=== PATIENT | female | born 1980 | race Caucasian/White ===

== ENCOUNTER 2016-06-20 14:47 | Emergency (ER) | payer OTHER ==
[2016-06-20] MEDS ORDERED: DEXAMETHASONE 10 MG/ML VIAL PO STA (16:51)
[2016-06-20] MEDS ORDERED: DEXAMETHASONE 10 MG/ML VIAL ONE (16:55)
[2016-06-20] MEDS ORDERED: CHERRY SYRUP 10 ML UDC PO ONE (16:55)
== END 2016-06-20 17:12 | disposition home or self-care (01) ==
DX: M54.5 Low back pain (principal); E03.9 Hypothyroidism, unspecified
CPT/HCPCS: 99282; 99283; A9270

== ENCOUNTER 2016-07-18 12:51 | Emergency (ER) | payer OTHER ==
[2016-07-18] MEDS ORDERED: HYDROmorphone 1 MG/ML SYRINGE IM STA ×2 (16:21→17:21)
[2016-07-18] MEDS ORDERED: PROMETHAZINE 25 MG/1 ML VIAL IM STA (16:22)
[2016-07-18] MEDS ORDERED: HYDROmorphone 1 MG/ML SYRINGE ONE ×2 (16:46→17:23)
[2016-07-18] MEDS ORDERED: PROMETHAZINE 25 MG/1 ML VIAL ONE (16:46)
[2016-07-18] MEDS ORDERED: DEXAMETHASONE 10 MG/ML VIAL PO STA (17:07)
[2016-07-18] MEDS ORDERED: CHERRY SYRUP 10 ML UDC PO ONE (17:16)
[2016-07-18] MEDS ORDERED: DEXAMETHASONE 10 MG/ML VIAL ONE (17:16)
== END 2016-07-18 17:54 | disposition home or self-care (01) ==
DX: M54.42 Lumbago with sciatica, left side (principal); E03.9 Hypothyroidism, unspecified
CPT/HCPCS: 81003; 96372; 99283; 99284; A9270; J1170

== ENCOUNTER 2016-07-19 13:27 | Emergency (ER) | payer OTHER ==
[2016-07-19] MEDS ORDERED: HYDROcod/ACETAM 5/325 MG TABLET PO STA (14:36)
[2016-07-19] MEDS ORDERED: HYDROcod/ACETAM 5/325 MG TABLET ONE (14:37)
[2016-07-19] MEDS ORDERED: HYDROmorphone 1 MG/ML SYRINGE IM STA (14:55)
[2016-07-19] MEDS ORDERED: HYDROmorphone 1 MG/ML SYRINGE ONE (14:55)
[2016-07-19] MEDS ORDERED: LORazepam 2 MG/ML SYRINGE IVP STA (16:47)
[2016-07-19] MEDS ORDERED: LORazepam 2 MG/ML SYRINGE ONE (16:48)
== END 2016-07-19 18:12 | disposition short-term general hospital (02) ==
DX: M48.06 Spinal stenosis, lumbar region (principal); R29.818 Other symptoms and signs involving the nervous system; M51.26 Other intervertebral disc displacement, lumbar region; E03.9 Hypothyroidism, unspecified
CPT/HCPCS: 72148; 96372; 96374; 99283; 99284; A9270; J1170; J2060

== ENCOUNTER 2016-07-19 18:15 | Outpatient (CLI) | payer OTHER | END 2016-07-19 18:16 | disposition short-term general hospital (02) | DX: M54.9 Dorsalgia, unspecified (principal) | CPT/HCPCS: A0170; A0425; A0426 ==

== ENCOUNTER 2017-10-31 11:19 | Emergency (ER) | payer OTHER ==
--- NOTE | 2017-10-31 12:10 | XRAY Preliminary Report ---
Exam: XR HAND 3 VIEW RT IMPRESSION: No acute radiographic abnormality of the right hand [facility] SITE ID: [id number]
--- NOTE | 2017-10-31 12:10 | XRAY Report ---
EXAM: RIGHT HAND RADIOGRAPHY EXAM DATE: 10/31/2017 11:49 AM. CLINICAL HISTORY: Crushing injury to right hand from dog. COMPARISON: None. TECHNIQUE: 3 views. FINDINGS: Bones: Normal. No fractures or bone lesions. Joints: Normal. No subluxations. Soft Tissues: Unremarkable IMPRESSION: No acute radiographic abnormality of the right hand [facility] Referring Provider Line: [phone] SITE ID: [id number]
--- NOTE | 2017-10-31 12:27 | ED Physician Documentation ---
PD HPI UPPER EXT INJURY - Stated complaint Stated Complaint: HAND INJURY - Chief complaint Chief Complaint: Ext Problem - History obtained from History obtained from: Patient - History of Present Illness Location: Right, Hand Type of injury: Blunt / blow (dog ran into her hand full force and struck dorsum of it.) Where injury occurred: Other (dog park) Timing - onset: Yesterday Timing - duration: Days (1) Timing - details: Abrupt onset, Still present Improved by: Rest Worsened by: Moving, Palpating Associated symptoms: Swelling, Discolored (bruised). 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 - Present Medications Home Medications: Ambulatory Orders Medication Instructions Recorded Confirmed Levothyroxine [Synthroid] 100 mcg PO DAILY 07/28/14 07/19/16 Sertraline HCl [Zoloft] 150 mg PO DAILY 10/27/15 07/19/16 HYDROcod/ACETAM 5/325 [[place] 5/325] 1 - 2 ea PO Q6H PRN #20 tablet 07/18/16 predniSONE [Prednisone] 20 mg PO DAILY #5 tablet 07/18/16 07/19/16 Naproxen [Naprosyn] 500 mg ORAL BID PRN 07/19/16 07/19/16 - Allergies Allergies/Adverse Reactions: Allergies Allergy/AdvReac Type Severity Reaction Status Date / Time No Known Drug Allergies Allergy Verified 07/19/16 13:33 - Social History Does the pt smoke?: No Smoking Status: Never smoker Does the pt drink ETOH?: No Does the pt have substance abuse?: No - Immunizations Immunizations are current?: Yes - POLST Patient has POLST: No PD ED PE NORMAL - Vitals Vital signs reviewed: Yes - General General: Alert and oriented X 3, No acute distress, Well developed/nourished - Derm Derm: Normal color, Warm and dry - Extremities Extremities: Other (dorsum right hand with tenderness over mid 3rd/4th MC area with some bruising and swelling. No gross deformity. ) Results - Vitals Vitals: Oxygen O2 Source Room air - Rads (name of study) hand Radiology: Prelim report reviewed (no fractures) PD MEDICAL DECISION MAKING - ED course Complexity details: reviewed results, considered differential, d/w patient Departure - Departure Disposition: 01 Home, Self Care Clinical Impression: Hand contusion Qualifiers: Encounter type: initial encounter Laterality: right Qualified Code(s): S60.221A - Contusion of right hand, initial encounter Condition: Stable Record reviewed to determine appropriate education?: Yes Instructions: ED Contusion Hand Comments: There are not any fractures on x-ray. Ice rest and elevate your hand as needed today and tomorrow for the swelling. The bruising should go down after several days. Tylenol or ibuprofen if needed for pains. Progress use as able. Discharge Date/Time: 10/31/17 12:46
[2017-10-31 12:41] VITALS: BP 142/96
== END 2017-10-31 12:46 | disposition home or self-care (01) ==
LOC: ED 11:19
DX: S60.221A Contusion of right hand, initial encounter (principal); W54.1XXA Struck by dog, initial encounter; Y93.K1 Activity, walking an animal; Y92.830 Public park as the place of occurrence of the external cause; E03.9 Hypothyroidism, unspecified
CPT/HCPCS: 99282; 99283

== ENCOUNTER 2019-03-08 12:49 | Outpatient (CLI) | payer OTHER ==
[2019-03-08 15:59] VITALS: BP 111/81
--- NOTE | 2019-03-08 15:59 | SLEEP CARE CONSULTATION ---
Information from patient questionnaire entered by Jenny Guthrie. I have reviewed and concur with the information entered by Jenny Guthrie. This document represents the service I personally performed and the decisions made by me, Min Rod MD, [facility]. History of Present Illness Reason for Visit: New patient Chief Complaint: reports: Unrefreshed sleep, Excessive daytime sleepiness, Fatigue Duration of Symptoms: 2 YEARS Usual bedtime: 2300 Time it takes to fall asleep: at least 60 minutes Snores at night: Yes (some) Sleeps alone due to snoring: No Number of times waking at night: 2-3 Reasons for waking at night: reports: Pain, Bathroom, Other (dog) Toss, Turn, or Twitch while sleeping: Yes Recalls having dreams: Yes Usually gets out of bed at: 0700 Feels refreshed in the morning: No Sleepy or fatigued during the day: Yes Takes day naps: Yes Dreams during day naps: Yes Prior sleep studies: No Additional HPI information: I had the pleasure of seeing Ms. Gonzalez today regarding the possibility of her having a sleep disorder. As you know, she is a 38 year old lady who complains of unrefreshed sleep, persistent fatigue, and excessive daytime sleepiness for the past 2 years. The patient tells me that she normally goes to bed around 11 pm, and it takes her approximately 1+ hour to fall asleep. She has been told that she snores loudly and irregularly at night. She has never been observed to stop breathing in her sleep. Her spouse can still sleep in the same bed. She can recall waking up on the average of 2 - 3 times during the night. Most of the time she wakes up because of having to use the bathroom and dog. She has awakened occasionally because of her own snoring, but not choking, or having to gasp for air. There is a lot of tossing and turning in her sleep. No somniloquy (sleep talking) or somnambulism (sleep walking). Generally she can recall having dreams. In the morning she usually gets up out of the bed around 7 a.m. not feeling refreshed nor rested. She usually does not have a morning headache. During the day she complains of feeling sleepy and fatigued. Her score on [place] Sleepiness Scale is 15 out of 24. She has never fallen asleep while driving nor has had any accident due to sleepiness. She usually takes 1.5- hour naps during the day. Upon falling asleep during the day she reports having dreams. She has never had sleep paralysis, experienced cataplexy or symptoms of restless leg syndrome. She reports having impaired concentration during the day. Subjective Initial [place] Sleepiness Scale score: 15 Past Medical History Past Medical History: reports: Depression, Other (celiac) Social History The patient's occupation is not employed. Patient is and lives in [place]. Have you smoked in the past 12 months: No Alcohol use: No Family History Family history of sleep disordered breathing: Yes Family Hx Sleep Apnea: Father: Snoring Allergies and Home Medications Drug allergies reviewed: Yes Home medication list reviewed: Yes Allergy and home medication list: Meds: melatonin, Cymbalta, and control pills Review of Systems Weight gain over past 5 years: 30 Cardiovascular: denies: high blood pressure, palpitations, chest pain, irregular heart rate or pulse, leg or foot swelling, have to sleep sitting up, other Respiratory: denies: shortness of breath, wheeze, sputum production, chronic cough, other Gastrointestinal: reports: diarrhea, abdominal pain, other (celiac) Urinary: reports: urgency Neurological: denies: headaches, seizure, head trauma, disorientation, speech dysfunction, gait or balance problems, fainting or unconsciousness, other Psychiatric: reports: depression Ear/Nose/Throat: reports: wisdom teeth removed Endocrine: denies: thyroid disease, history of goiter, sluggishness, too hot or cold, excessive thirst, increased appetite, increased urination, unexplained weakness, other Musculoskeletal: denies: joint pain, neck pain, back pain, joint swelling, muscle pain or cramping, mobility problems, other Immunologic: reports: sneezing, rash, itching, allergies to food or environment Physical Exam Vital signs obtained and entered by: Dr. Rod Blood Pressure: 111/81 Cuff size: regular Heart Rate: 96 O2 Saturation: 96 Height: 5 ft 9 in Weight: 310 lb Body Mass Index: 45.8 BMI Classification: Obesity Class 3 Neck circumference: 17 Mood/affect: normal HEENT: No craniofacial malformation Nostrils: patent to airflow Turbinates: normal Septum: midline Mouth and throat: narrow oropharynx Soft palate: long Hard palate: normal Uvula: normal Uvula visualization: 50% Mallampati Class II Tongue: normal in size Tonsils: small Chin and jaw: normal size and position Neck: normal w/o lymphadenopathy or thyromegaly Heart: regular rate and rhythm Lungs: clear bilaterally Abdomen: soft, non-tender Extremities: no edema or clubbing Neurologic: intact, no focal deficits Impression and Plan IMPRESSION: 1. Obstructive Sleep Apnea-Hypopnea Syndrome, as suggested by history of loud and irregular snoring, frequent awakenings during the night, unrefreshed sleep, and daytime hypersomnolence. Narrow oropharynx and obesity are common predisposing factors for obstructive sleep apnea-hypopnea syndrome. Pathophysiology of sleep-disordered breathing was discussed. I recommend proceeding to polysomnography to confirm the diagnosis and to assess severity. If she has significant sleep disordered breathing, a manual CPAP titration study will also be performed to find the optimal treatment pressure. I informed the patient of what the sleep studies involve and after some discussion, she agreed to proceed. Plan: 1. Schedule polysomnography + manual CPAP titration study and return in 1 to 2 weeks after the study to discuss result and initiate therapy. 2. Avoid long distance driving or when feeling sleepy. 3. Avoid alcohol, sedative and muscle relaxant around bedtime. 4. Attempt to lose weight. I spent 100% of this 20 minute visit face to face with the patient with greater than 50% of this was spent time counseling the patient and coordination of care.
== END 2019-03-08 12:50 | disposition home or self-care (01) ==
LOC: SC 12:49
PROVIDERS: ATTEND Internal Medicine Pulmonary Disease
DX: R06.83 Snoring (principal); G47.8 Other sleep disorders; G47.10 Hypersomnia, unspecified
CPT/HCPCS: 99203; 99212

== ENCOUNTER 2019-03-16 20:17 | Outpatient (CLI) | payer OTHER | END 2019-03-16 20:18 | disposition home or self-care (01) | LOC: SC 20:17 | PROVIDERS: ATTEND Internal Medicine Pulmonary Disease | DX: G47.33 Obstructive sleep apnea (adult) (pediatric) (principal); G47.61 Periodic limb movement disorder; E66.9 Obesity, unspecified; Z68.42 Body mass index [BMI] 45.0-49.9, adult | CPT/HCPCS: 95810 ==

== ENCOUNTER 2019-03-22 13:15 | Outpatient (CLI) | payer OTHER ==
--- NOTE | 2019-03-22 14:18 | SLEEP CARE CONSULTATION ---
Information from patient questionnaire entered by Jenny Guthrie. I have reviewed and concur with the information entered by Jenny Guthrie. This document represents the service I personally performed and the decisions made by me, Min Rod MD, [facility]. History of Present Illness Initial [place] Sleepiness Scale score: 15 Current [place] Sleepiness Scale score: 16 Additional HPI information: HPI: returned for follow up of the sleep study she had on 03/16/2019. The polysomnography showed that the patient had slightly reduced sleep efficiency due to frequent awakenings after the sleep onset. The sleep architecture was abnormal for sleep fragmentation and lack of REM sleep.. Respiratory monitoring showed severe obstructive sleep apnea-hypopnea (AHI = 32.4) associated with frequent arousals, oxyhemoglobin desaturation but minimal hypoxia (marco oxygen saturation of 89%). The respiratory events occurred independently of sleep stage and body position (supine AHI = 38.1; non-supine = 27.73). Snore was loud in intensity. There was moderate periodic leg movement of sleep contributing to the sleep fragmentation. Cardiac rhythm was normal sinus rhythm without significant arrhythmia. No abnormal behavior (parasomnia) observed during the night. The patient was informed of these findings. I explained to her the pathophysiology behind obstructive sleep apnea. We then spent quite a bit of time discussing different treatment options. For mild obstructive sleep apnea, surgery and oral appliance are alternatives to nasal CPAP therapy but in moderate or severe cases, nasal CPAP is the most effective and reliable treatment. After some discussion, she opted to go with the nasal CPAP therapy. I explained to her how CPAP machine works and what to expect when using the machine. She is encouraged to use CPAP every night especially in the first 2 to 3 nights in order to get used to it. She should call me or her CPAP supplier to discuss any mechanical problem that may occur. If she snores while wearing the CPAP or feels like she needs more air from the machine, she should notify me and I will increase the pressure. Allergies and Home Medications Drug allergies reviewed: Yes Home medication list reviewed: Yes Review of Systems Review of systems same as previous: Yes Physical Exam Weight: 310 lb Impression and Plan IMPRESSION: 1. Obstructive Sleep Apnea-Hypopnea Syndrome, severe, associated with minimal hypoxemia and sleep fragmentation. Obviously this is the cause of the patients symptoms of unrefreshed sleep, and excessive daytime sleepiness. As mentioned above, the patient will be started on autoCPAP set at 5 - 15 cmH2O. A manual CPAP/BiPAP titration study will be scheduled. PLAN: 1. Prescription made for an autoCPAP with heated humidifier and related supplies. 2. Attempt to lose weight. 3. Be careful when driving until her sleepiness resolves completely on nasal CPAP therapy. 4. Schedule a manual CPAP/BiPAP titration study and return for follow up after the study. I spent 100% of this 20 minute visit face to face with the patient with greater than 50% of this was spent time counseling the patient and coordination of care.
== END 2019-03-22 13:16 | disposition home or self-care (01) ==
LOC: SC 13:15
PROVIDERS: ATTEND Internal Medicine Pulmonary Disease
DX: G47.33 Obstructive sleep apnea (adult) (pediatric) (principal)
CPT/HCPCS: 99212; 99213

== ENCOUNTER 2019-04-15 19:34 | Outpatient (CLI) | payer OTHER | END 2019-04-15 19:35 | disposition home or self-care (01) | LOC: SC 19:34 | PROVIDERS: ATTEND Internal Medicine Pulmonary Disease | DX: G47.33 Obstructive sleep apnea (adult) (pediatric) (principal); E66.9 Obesity, unspecified; Z68.42 Body mass index [BMI] 45.0-49.9, adult | CPT/HCPCS: 95811 ==

== ENCOUNTER 2019-07-14 08:13 | Outpatient (CLI) | payer OTHER ==
--- NOTE | 2019-07-14 09:08 | SLEEP CARE CONSULTATION ---
Information from patient questionnaire entered by Naya Buckley. I have reviewed and concur with the information entered by Naya Buckley. This document represents the service I personally performed and the decisions made by me, Seema White, RN, MSN, [employer]. History of Present Illness Previous diagnosis: Severe, Obstructive Sleep Apnea-Hypopnea Syndrome AHI: 32.5 Reason for follow up: first compliance, with manual titration Accompanied by: 13 year old son Equipment type: CPAP Equipment obtained from: [facility] Mask style: Nasal (N20) Mask brand: Resmed Backup mask available: Yes Last cushion change: a few days ago Sleep Study - Results Polysomnography/Home Sleep Study results: The quality of the study is good. CPAP was initiated at 7 cmH2O and titrated up to CPAP at 12 cmH2O. CPAP at 12 cmH2O appeared to be optimal (AHI of 0 per hour on the pressure). There was supine REM sleep on the pressure. Oxygen saturation was normal throughout the night. Lower CPAP settings allowed a few residual respiratory events. The patient appeared to have tolerated positive airway pressure therapy very well. The patients sleep efficiency was normal. The sleep architecture was abnormal for mild sleep fragmentation and reduced amount of time spent in slow wave sleep (N3). There was no significant periodic leg movement of sleep. Cardiac rhythm was normal sinus rhythm without significant arrhythmia. No abnormal behavior (parasomnia) observed during the night. CPAP Compliance Data - Data Reviewed with Patient Average duration of nightly device use: 6.95 Compliance rate %: 93 Current pressure setting (cmH2O): 5-15 Humidity settin Average residual AHI: 0.3 (95th % pressure 6.6cmH20) Subjective Patient concerns: reports: mask discomfort (skin irritation at site of mask with a few tender papules. washing with witchhazel), air blowing in eyes (only when laughing), condensation in mask/hose (stopped humdifier due to condensation), other (skin breakouts). denies: mask leak noise, nasal congestion, dry mouth, nose, throat, epistaxis Observed to snore while using device: No Current pressure setting perceived as: comfortable On therapy, patient: reports: sleeping better, awakening more refreshed, being more awake and alert during the day, more rested overall. denies: drowsiness while driving Initial [place] Sleepiness Scale score: 15 Current [place] Sleepiness Scale score: 9 Allergies and Home Medications Known drug allergies: No Home medication list reviewed: Yes Allergy and home medication list: cymbalta 50mg ? daily Review of Systems Review of systems same as previous: Yes Physical Exam Blood Pressure: 110/70 Cuff size: long Heart Rate: 60 O2 Saturation: 98 Height: 5 ft 9 in Weight: 307 lb 3.2 oz Body Mass Index: 45.3 BMI Classification: Obesity Class 3 Impression and Plan 1. Obstructive Sleep Apnea-Hypopnea Syndrome, severe, with good treatment comp liance and good apnea control. On CPAP therapy, the patient has better sleep quality and is more rested overall. Since the titration study, she has lost 16 pounds thus I will adjust her autoCPAP pressure lower to [id number]. She was praised for weight loss. I discussed how her apnea severity and CPAP pressure requirements will reduce as she continues to lose weight. Symptoms to report for further adjustment discussed. Pad a Cheek cloth skin barrier samples shown that can be ordered to reduce mask skin irritation. A pamphlet given about the product was given. She is also to try washing the mask with baby shampoo and rinse well as the cleaning product she is using may be too harsh. Cleaning PAP equipment questions answered and importance of regular cleaning discussed. Daily cleaning of the mask can be incorporated into routine by completing during time when patient brushes teeth in the morning. Regularly cleaning the mask will reduce incidence of skin irritation that can occur from accumulation of skin oils on the skin. The humidifier is recommended to be emptied daily to allow it to dry out thoroughly between use. The rest of the equipment should be cleaned weekly. Reference sheet given. Patient advised to check manual for further questions. For condensation, she was shown how to adjust the heated hose and humidity with sample device. Printed instructions given with rationale d iscussed. Patient's apnea severity and rationale for treatment to reduce apnea, improve sleep quality and reduce cardiovascular and cerebrovascular events was reviewed. I also reviewed the benefit of consistent device use of CPAP for her depression/anxiety. * * Change CPAP pressure to 6-12 cmH2O * cloth barriers * implement changes in cleaning mask * Notify me if snoring with mask or feeling that the pressure is too much or too little * Continue to lose weight * Call this office if any problems using CPAP * Return for follow up in 3 months , or sooner if concerns arise Time Spent with Patient (minutes): 40 I spent 100% of this visit face to face with the patient with greater than 50% of this was spent time counseling the patient and coordination of care.
[2019-07-14 09:09] VITALS: BP 110/70
== END 2019-07-14 08:14 | disposition home or self-care (01) ==
LOC: SC 08:13
PROVIDERS: ATTEND Nurse Practitioner Family
DX: G47.33 Obstructive sleep apnea (adult) (pediatric) (principal); E66.9 Obesity, unspecified; Z68.42 Body mass index [BMI] 45.0-49.9, adult

== ENCOUNTER 2019-10-06 17:07 | Outpatient (CLI) | payer OTHER ==
--- NOTE | 2019-10-06 14:01 | SLEEP CARE CONSULTATION ---
Information from patient questionnaire entered by Jenny Guthrie. I have reviewed and concur with the information entered by Jenny Guthrie. This document represents the service I personally performed and the decisions made by me, Seema White, RN, MSN, LADLE OPERATOR. History of Present Illness Service Date and Time: 10/06/2019 1707 Previous diagnosis: Severe, Obstructive Sleep Apnea-Hypopnea Syndrome AHI: 32.4 Reason for follow up: three month Equipment type: CPAP Equipment obtained from: [employer] (getting supplies as needed) Mask style: Nasal Backup mask available: Yes (old mask ) Last cushion change: 1 week ago - changes every 2 weeks or has mask leaks in eyes Type of Sleep Study: Polysomnography CPAP Compliance Data - Data Reviewed with Patient Average duration of nightly device use: 7H 11M Compliance rate %: 87 Current pressure setting (cmH2O): 6-12 Average residual AHI: 0.2 (95th % = 6.9 cmH20) Average large leak: 1 liter per minute Subjective Patient concerns: reports: air blowing in eyes (resolved with changing mask cushion every 2 weeks), condensation in mask/hose (so stopped putting water in reservoir and has reduced humidity to unknown ), nasal congestion (seasonal allergies less since CPAP / no nasal congestion now). denies: aerophagia, mask discomfort, mask leak noise, dry mouth, nose, throat, epistaxis Observed to snore while using device: No Current pressure setting perceived as: comfortable On therapy, patient: reports: sleeping better (once asleep / difficulty falling asleep most nights. wake time=9-10am bedtime 12-1am and takes about 1 hour to fall asleep. does not set alarm. listens to audio books before bed in bed and on etiquette coach/looks at clock), awakening more refreshed, being more awake and alert during the day, more rested overall. denies: drowsiness while driving Initial [place] Sleepiness Scale score: 15 Allergies and Home Medications Home medication list reviewed: No (discontinued control ) Review of Systems Review of systems same as previous: Yes Physical Exam Height: 5 ft 9 in Weight: 295 lb (home weight) Body Mass Index: 43.5 BMI Classification: Morbidly Obese Impression and Plan 1. Obstructive Sleep Apnea-Hypopnea Syndrome, severe, with good treatment compliance and apnea control. On CPAP therapy, the patient has better sleep quality and is more rested overall. Patient is very pleased with benefit of treatment. Patient lost 22 pounds since June. Currently patients BMI is 43.3 obesity class . Obesity increases the risk of apnea, CPAP pressure requirements and overall health risks especially cardiovascular and diabetes. Thus patient is advised to continue to lose weight. Weight loss can be done with reducing portion size, reducing refined foods and balancing content with vegetables, fruit and protein. In addition tracking food intake will allow awareness of how to modify diet to achieve weight loss goals. Also eating more slowly will allow more awareness of food intake and enjoyment of food while assisting patient to modify intake at each meal. A diet consultation can be helpful in achieving optimal weight loss goals. The BMI chart was reviewed. The patient would like to reduce to 100 pounds. Patient encouraged to discuss their weight loss goals with their PCP and consider a referral to a inspector aligning.The patient's CPAP pressure was changed to 4-8 cmH2O to accommodate future weight loss. Symptoms to report for additional pressure adjustment discussed. Patient's apnea severity and rationale for treatment to reduce apnea, improve sleep quality and reduce hypertension, cardiovascular and cerebrovascular events was reviewed. 2.Insomnia is generally caused by an irregular sleep schedule, spending too much time in bed, napping, caffiene, electronics, lack of a relaxing bedtime ritual and clock watching. Other factors can include anxiety/depression, pain, medications, and obstructive sleep apnea. Patients insomnia seems to be due to irregular sleep schedule, clock watching and things on her mind. First I counseled the patient on the importance of a regular sleep schedule, starting with the wake time. I explained the homestatic sleep drive and how maintaining a regular wake time will allow the patient to be tired enough to sleep 15-16 hours later. By waking at the same time, the patient will also feel more alert. This can also be assisted by exposure to bright light for a minimum of 15 minutes a day upon waking. Additionally too much time spent in bed can cause more sleep disruption as most people only need 7-9 hours of sleep. Thus patient advised to restrict time in bed to 7-8 hours. Naps are to be avoided unless overcome by sleepiness. Then naps are to be restricted to one hour and before 3 pm so as not to interfere with nighttime sleep. Most caffeine is to be stopped after lunch as it has a 6 hour half life and reduce sleep latency and efficiency. In addition, it is important to have a relaxing ritual about 30-60 minutes before bedtime to allow the mind/body transition from an active day to sleep. Electronics should be avoided 1-2 hours before bedtime as the bright light can reduce the endogenous melatonin and the activity of the computer, tablet, cell phone etc can be alerting. TV is okay but content needs to be relaxing and the brightness dimmed. A warm bath or shower is another way to assist transition to sleep. In addition, it is important to have a sleep environment conducive to sleep such as a comfortable bed, comfortable temperature and quiet. The alarm clock should be set and the face covered to prevent clock watching if awakened during the night. Knowing the time can cause anxiety and increase alertness and thinking about sleep time and preparation for the next day. Instead if awakened after sleep, the patient is to position for comfort or use bathroom and return to sleep. If unable to go to sleep in an estimated 20 minutes of more, it is advised to leave the bedroom and engage in a quiet activity until sleepy enough to return to bed. If unable to sleep due to things on the mind, it is recommended to write out the concerns or list to do as a release then return to a quiet activity until sleepy enough to return to bed. This is to be repeated as often as necessary to associate the bed with sleep and not frustration to get to sleep. [facility] How to Sleep Better pamphlet to be send to patient A sleep diary will be completed if above measures do not reduce insomnia and follow up scheduled. * Change auto CPAP pressure to 4-8 cmH2O * Notify me if snoring with mask or feeling that the pressure is too much or too little * Continue to lose weight * Implement methods to reduce insomnia. * Call this office if any problems using CPAP * Return for follow up in 6 months , or sooner if concerns arise Visit Type: Telehealth Video (to reduce risk of Covid 19 exposure) Video Type: [employer] Patient Location: Home Other Participants: Child Location of Provider: Home Patient agrees and consents to this telehealth visit type: Yes Patient agrees to have their insurance billed: Yes Time Spent with Patient (minutes): 29 Provider Statement: I spent 100% of the Telehealth Video Call with the patient with greater than 50% spent counseling the patient and coordination of care.
== END 2019-10-06 17:08 | disposition home or self-care (01) ==
LOC: SC 17:07
PROVIDERS: ATTEND Nurse Practitioner Family
DX: G47.33 Obstructive sleep apnea (adult) (pediatric) (principal); G47.00 Insomnia, unspecified; E66.01 Morbid (severe) obesity due to excess calories; Z68.41 Body mass index [BMI] 40.0-44.9, adult

== ENCOUNTER 2021-07-25 07:43 | Outpatient (CLI) | payer OTHER ==
[2021-07-25] MEDS ORDERED: GADOBUTROL 15 MMOL/15 ML VIAL ONE (08:08)
--- NOTE | 2021-07-25 10:27 | MRI Report ---
PROCEDURE: Lumbar Spine W/WO INDICATIONS: LOW BACK PAIN CONTRAST: IV CONTRAST: Gadavist ml: 11 TECHNIQUE: Noncontrast sagittal T1 spin echo and T2 fast spin echo, sagittal STIR, axial T1 and T2 fast spin ech o through the lumbar spine. In cases with scoliosis, additional coronal T2 fast spin echo may be per formed. After the administration of contrast, sagittal and axial T1 spin echo with fat saturation th rough the lumbar spine. COMPARISON: 07/19/2016 FINDINGS: Image quality: Motion artifact is noted. Alignment and curvature: There is normal bony alignment. Marrow: Marrow is of normal overall signal. No acute vertebral body compression fractures. No susp icious marrow enhancement. Spinal cord: Conus medullaris terminates at the L1 level. Visualized spinal cord demonstrates bibi l signal, without suspicious enhancement. Paraspinous soft tissues: No paravertebral masses or abnormal enhancement. T12-L1: Normal in appearance. L1-L2: Normal in appearance. L2-L3: No significant abnormality is seen. L3-L4: The disc height is well-preserved. There is loss of disc signal seen. Mild disc bulge is se en. Note is made of an annular fissure posteriorly. Mild facet hypertrophy is seen. There is mild to moderate right-sided and mild left-sided neuroforaminal narrowing. Mild central canal narrowing is seen. These degenerative changes have progressed when compared to the prior examination. L4-L5: Moderate loss of disc height and signal are seen. Reactive marrow endplate changes are seen , which are hyperintense on T1-weighted and T2-weighted imaging, without significant increased STIR s ignal. These imaging findings are most consistent with fatty metaplasia (Modic type 2 change). Prior right hemilaminectomy change can be seen. Mild to moderate disc bulge is seen. Moderate bilateral n eural foraminal narrowing is seen. The central canal is widely patent. No abnormal enhancement can be seen. The previously seen disc extrusion has resolved, with resolution of the previously seen sig nificant central disc protrusion. However, the degree of disc space narrowing has clearly worsened co mpared to 2017. The degrees of neural foraminal narrowing are also slightly worse. L5-S1: Moderate loss of disc height and signal are seen. Moderate disc bulge is seen, which is ecce ntric to the right. Mild to moderate facet hypertrophy is seen at this level. Moderate bilateral neur oforaminal narrowing can be seen, right worse than left. No central canal narrowing is seen. These de generative changes are progressed compared to 2017. IMPRESSION: Since 2017, there has been right hemilaminectomy at L4-L5 with resolution of the previously seen disc extrusion at this level. The L4-5 central canal is widely patent. At L4-5, there is been mild progression of neural foraminal narrowing since 2017. Since 2017, there is been mild progression of degenerative change at L3-L4 and L4-L5. Reviewed by: Olivier Miranda MD on 07/25/2021 9:26 AM [facility] Approved by: Olivier Miranda MD on 07/25/2021 9:26 AM [facility] Station ID: [id number]
[2021-07-25] MEDS ORDERED: GADOBUTROL 15 MMOL/15 ML VIAL IVP ONE (10:55)
== END 2021-07-25 07:44 | disposition home or self-care (01) ==
LOC: DI 07:43
PROVIDERS: ATTEND Family Medicine
DX: M47.816 Spondylosis without myelopathy or radiculopathy, lumbar region (principal); M47.817 Spondylosis without myelopathy or radiculopathy, lumbosacral region; M51.36 Other intervertebral disc degeneration, lumbar region; M48.061 Spinal stenosis, lumbar region without neurogenic claudication; M48.07 Spinal stenosis, lumbosacral region
CPT/HCPCS: 72158; A9585

== ENCOUNTER 2022-09-04 14:41 | Emergency (ER) | payer OTHER ==
--- NOTE | 2022-09-04 17:15 | ED Physician Documentation ---
PD HPI BACK PAIN - Stated complaint Stated Complaint: BACK PX LOSS OF MOVEMENT - Chief complaint Chief Complaint: Back Pain - History obtained from History obtained from: Patient - History of Present Illness Timing - onset: How many days ago (2-3 days of some pain right lower back that worsened today after just bending/twist. No forceful injury. Has had similar due to herniated disc and had discectomy about 6 years ago without any subseuqnt back pains/rpoblems until current pain.) Timing - details: Abrupt onset, Still present Location: Lower, Right Quality: Pain, Spasm Associated symptoms: No: Fever, Weakness, Numbness Worsened by: Movement, Twisting Contributing factors: Lifting, Twisting. No: Trauma Similar symptoms before: Diagnosis (had herniated disc with nerve compression abruptly about 6 years ago needing acute surgery for discectomy.) Review of Systems Constitutional: denies: Fever, Chills GI: denies: Abdominal Pain, Nausea, Vomiting : denies: Incontinent Skin: denies: Rash, Lesions Neurologic: denies: Focal weakness, Numbness PD PAST MEDICAL HISTORY - Past Medical History Cardiovascular: None Respiratory: None Endocrine/Autoimmune: HyPOthyroidism Musculoskeletal: Chronic back pain (prior back pain about 6 years ago, but not in the interval - so not chronic back pain. 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 - Present Medications Home Medications: Ambulatory Orders Medication Instructions Recorded Confirmed Baclofen 10 mg PO DAILY 09/04/22 09/04/22 Cyclobenzaprine [Flexeril] 10 mg PO TID PRN #20 tablet 09/04/22 DULoxetine [Cymbalta] 30 mg PO DAILY 09/04/22 09/04/22 Hydromorphone HCl [Dilaudid] 4 mg PO Q6HR PRN #14 tablet 09/04/22 Methylphenidate HCl [Concerta] 27 mg PO DAILY 09/04/22 09/04/22 - Allergies Allergies/Adverse Reactions: Allergies Allergy/AdvReac Type Severity Reaction Status Date / Time No Known Drug Allergies Allergy Verified 09/04/22 15:14 - Social History Does the pt smoke?: No Smoking Status: Never smoker Does the pt drink ETOH?: No Does the pt have substance abuse?: No - Immunizations Immunizations are current?: Yes - POLST Patient has POLST: No PD ED PE NORMAL - Vitals Vital signs reviewed: Yes - General General: Alert and oriented X 3, Well developed/nourished, Other (appears very uncomfortable and is guarding roM of the back. States hurts more to try to lie down or sit. Standing in room. ) - Neck Neck: Supple, no meningeal sign, No bony TTP, No adenopathy - Cardiac Cardiac: RRR, No murmur - Respiratory Respiratory: Clear bilaterally - Abdomen Abdomen: Soft, Non tender - Back Back: No CVA TTP, No spinal TTP, Other (tender right lower lumbar area at iliac crest. Some muscle tenderness in area but not focal trigger point per se. ) - Derm Derm: Normal color, Warm and dry - Neuro Neuro: Alert and oriented X 3, No motor deficit, Normal speech, Other (sensory decrease to touch lower lateral lower leg which she says is chronic from piror disc problem/surgery. ) Results - Vitals Vitals: Vital Signs - 24 hr 09/04/22 09/04/22 09/04/22 15:08 17:15 21:23 Temperature 36.9 C Heart Rate 64 76 Respiratory 16 17 17 Rate Blood Pressure 128/73 153/88 H O2 Saturation 100 96 09/04/22 21:28 Temperature Heart Rate Respiratory 17 Rate Blood Pressure O2 Saturation Oxygen O2 Source Room air - Rads (name of study) lumbar CT Relevant Findings:: Prelim report reviewed (comparison to MRI 09/22/21 - similar findings with L4/5 disc protrusion and facet degeneration, and L5/S1 loss of disc height with moderate disc protrusion. Not changed from prior imaging. ), See rad report PD Medical Decision Making - ED course Complexity details: reviewed results, considered differential (abrupt new low back pain to right. prior back surgery and disc protrusion years ago. Most recent imaging 09/21/21. ct today not showing much change from that but does have lower lumbar disc problems. ), d/w patient Drug Therapy Requiring Monitoring for Toxicity: given dilaudid and toradol IM due to acute severe back pain. Presume some disc or muscle inflammation and gave Decadron oral dose and muscle relaxant. Had reasonable improvement in pain. Awaiting ct results. Departure - Departure Disposition: 01 Home, Self Care Clinical Impression: Sciatica Qualifiers: Laterality: right Qualified Code(s): M54.31 - Sciatica, right side Condition: Stable Record reviewed to determine appropriate education?: Yes Instructions: ED Sciatica Follow-Up: RHETT RÍOS ARNP [Primary Care Provider] - Prescriptions: Hydromorphone HCl [Dilaudid] 4 mg PO Q6HR PRN #14 tablet PRN Reason: pain Cyclobenzaprine [Flexeril] 10 mg PO TID PRN #20 tablet PRN Reason: Spasms Comments: Maggie, today it looks like you have an exacerbation of sciatica and our expectations with this is usually takes about a week for the symptoms to resolve completely and I [place] E [place]: Activity restrictions Discharge Date/Time: 09/04/22 21:47
[2022-09-04] MEDS ORDERED: KETOROLAC 30 MG/ML VIAL IM STA (17:50)
[2022-09-04] MEDS ORDERED: HYDROmorphone 2 MG/ML VIAL IM STA (17:51)
[2022-09-04] MEDS ORDERED: DEXAMETHASONE 10 MG/ML VIAL PO STA (17:52)
[2022-09-04] MEDS ORDERED: CHERRY SYRUP 10 ML UDC PO ONE (17:52)
[2022-09-04] MEDS ORDERED: methocarbamoL 500 MG TABLET PO STA (17:52)
[2022-09-04 21:24] VITALS: BP 153/88
--- NOTE | 2022-09-05 07:08 | CT Report ---
PROCEDURE: LUMBAR SPINE WO INDICATIONS: acute low back pain; prior surgery years ago TECHNIQUE: Noncontrast 3 mm thick sections acquired from the T12 level to the sacrum. Sagittal and coronal refo rmats were constructed. For radiation dose reduction, the following was used: automated exposure co ntrol, adjustment of mA and/or kV according to patient size. COMPARISON: Correlation is made with prior lumbar MRI, 09/22/2021. FINDINGS: Image quality: Excellent. Bones: There is normal bony alignment. No acute vertebral body compression fractures. No suspiciou s lytic or blastic bony lesions. Central spinal caliber is of normal overall caliber. No pars defec ts. T12-L1: Normal in appearance. L1-L2: Normal in appearance. L2-L3: No significant abnormality is seen. L3-L4: The disc height is relatively well preserved. Mild to moderate disc bulge is seen, with a ce ntral disc protrusion. There is mild to moderate left-sided and mild right-sided neuroforaminal narro wing. Mild central canal narrowing is seen. L4-L5: There is moderate to severe loss of disc height. Moderate disc bulge is seen, with a central disc protrusion. Moderate facet hypertrophy is seen. Moderate bilateral neural foraminal narrowin g is seen. Postoperative change with right hemilaminotomy can be seen. No significant central canal narrowing is seen. L5-S1: Moderate to severe loss of disc height is seen. Vacuum disc phenomenon is seen at this leve l. Mild to moderate disc bulge is seen, which is eccentric to the left. Mild facet hypertrophy is se en. Moderate bilateral neuroforaminal narrowing can be seen. No significant central canal narrowing c an be seen. Soft tissues: No retroperitoneal masses or hematomas. Visualized aorta is normal in caliber. Upper quadrant postoperative change can be seen. IMPRESSION: No acute abnormality is identified by CT. Focal lower lumbar spine degenerative changes are seen, which are similar to the prior MRI examinatio n. Additional findings: Bariatric surgery Reviewed by: Olivier Miranda MD on 09/04/2022 6:06 PM [facility] Approved by: Olivier Miranda MD on 09/04/2022 6:06 PM [facility] Station ID: [id number]
== END 2022-09-04 21:47 | disposition home or self-care (01) ==
LOC: ED 14:41
DX: M54.31 Sciatica, right side (principal)
CPT/HCPCS: 72131; 96372; 99284; A9270; J1170

== ENCOUNTER 2023-10-05 18:45 | Emergency (ER) | payer OTHER ==
--- NOTE | 2023-10-05 19:02 | ED Physician Documentation ---
History of Present Illness - Stated complaint Stated Complaint: ABNORMAL LABS - Chief complaint Chief Complaint: General - History obtained from History obtained from: Patient - Additonal information Additional information: She has a history of anemia and 2-year-old gastric bypass. She went to the clinic today for thrush. They did a CBC and her hemoglobin was 7.6 was sent her here for evaluation. She denies particular heavy periods, excessive fatigue or shortness of breath, or dark or tarry stools. No history of GI bleeding. Not on a PPI. 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 - Present Medications Home Medications: Ambulatory Orders Medication Instructions Recorded Confirmed Baclofen 10 mg PO DAILY 09/04/22 09/04/22 Cyclobenzaprine [Flexeril] 10 mg PO TID PRN #20 tablet 09/04/22 DULoxetine [Cymbalta] 30 mg PO DAILY 09/04/22 09/04/22 Hydromorphone HCl [Dilaudid] 4 mg PO Q6HR PRN #14 tablet 09/04/22 Methylphenidate HCl [Concerta] 27 mg PO DAILY 09/04/22 09/04/22 - Allergies Allergies/Adverse Reactions: Allergies Allergy/AdvReac Type Severity Reaction Status Date / Time No Known Drug Allergies Allergy Verified 10/05/23 18:47 - Social History Does the pt smoke?: No Smoking Status: Never smoker Does the pt drink ETOH?: No Does the pt have substance abuse?: No - Immunizations Immunizations are current?: Yes - POLST Patient has POLST: No PD ED PE NORMAL - Vitals Vital signs reviewed: Yes - General General: Alert and oriented X 3, No acute distress - Neck Neck: Supple, no meningeal sign - Cardiac Cardiac: RRR, No murmur - Respiratory Respiratory: No respiratory distress, Clear bilaterally - Abdomen Abdomen: Non tender - Neuro Neuro: Alert and oriented X 3, Normal speech Results - Vitals Vitals: Vital Signs - 24 hr 10/05/23 10/05/23 18:49 20:09 Temperature 36.5 C Heart Rate 74 71 Respiratory 16 16 Rate Blood Pressure 160/80 H 155/76 H O2 Saturation 100 98 Oxygen O2 Source Room air - Labs Labs: Microbiology 10/05/23 19:15 Occult Blood - Final Stool Laboratory Tests 10/05/23 10/05/23 10/05/23 19:00 19:00 19:00 WBC 7.5 RBC 4.04 L Hgb 7.3 L Hct 27.3 L MCV 67.6 L MCH 18.1 L MCHC 26.7 L RDW 19.9 H Plt Count 403 MPV 8.7 Neut # (Auto) 4.4 Lymph # (Auto) 2.3 Stone # (Auto) 0.6 Eos # (Auto) 0.2 Baso # (Auto) 0.0 Absolute Nucleated RBC 0.00 Nucleated RBC % 0.0 Manual Slide Review Indicated Platelet Estimate NORMAL (130-450,000) Platelet Morphology NORMAL APPEARANCE RBC Morph Micro Appear 1+ TARGET CELLS Sodium 136 Potassium 4.1 Chloride 104 Carbon Dioxide 26 Anion Gap 6.0 BUN 14 Creatinine 0.7 Estimated GFR (MDRD) 92 Glucose 87 Calcium 9.2 Iron < 10 L TIBC 494 H % Saturation TNP Transferrin 353 Total Bilirubin 0.3 AST 13 ALT 11 Alkaline Phosphatase 84 Total Protein 7.1 Albumin 3.9 Globulin 3.2 Albumin/Globulin Ratio 1.2 Blood Type O POSITIVE Antibody Screen NEGATIVE PD Medical Decision Making - ED course ED course: 43-year-old woman presents from the clinic with anemia. She is guaiac negative which was a concern given her history of gastric bypass and potential for marginal ulcer. That said she is also not having any dark or tarry stools so seems unlikely. Otherwise workup demonstrated a microcytic anemia with normal CMP and low iron levels. She is relatively asymptomatic, and recommended oral iron supplementation with follow-up with primary care physician (who referred her here) for recheck and consideration of IV iron if needed. Departure - Departure Disposition: 01 Home, Self Care Clinical Impression: Iron deficiency anemia Qualifiers: Iron deficiency anemia type: unspecified iron deficiency Qualified Code(s): D50.9 - Iron deficiency anemia, unspecified Condition: Good Record reviewed to determine appropriate education?: Yes Instructions: ED Anemia Iron Deficiency Comments: You were seen today for anemia. There was no blood in your stool. Your hemoglobin was 7.3 and her hematocrit was 27.3. Your indices were consistent with an iron deficiency anemia which was corroborated by your iron level which was less than 10 (should be greater than 50). Follow-up with your primary care physician, started [id number] iron supplement. They may want to refer you for IV iron supplementation if not improving. Return if worse. Forms: PCP List Discharge Date/Time: 10/05/23 20:10
[2023-10-05 19:11] LABS: BASOPHILS % (AUTO) 0.4 %; EOSINOPHILS # (AUTO) 0.2 10^3/uL (0.0-0.7); EOSINOPHILS % (AUTO) 3.2 %; HCT - HEMATOCRIT 27.3 % (37.0-47.0); HGB - HEMOGLOBIN 7.3 g/dL (12.0-16.0); LYMPHOCYTES # (AUTO) 2.3 10^3/uL (1.5-3.5); LYMPHOCYTES % (AUTO) 30.1 %; MEAN CORPUSCULAR HEMOGLOBIN 18.1 pg (27.0-31.0); MEAN CORPUSCULAR HGB CONC 26.7 g/dL (32.0-36.0); MEAN CORPUSCULAR VOLUME 67.6 fL (81.0-99.0); MEAN PLATELET VOLUME 8.7 fL (7.9-10.8); MONOCYTES # (AUTO) 0.6 10^3/uL (0.0-1.0); MONOCYTES % (AUTO) 8.2 %; NEUTROPHILS # (AUTO) 4.4 10^3/uL (1.5-6.6); NEUTROPHILS % (AUTO) 57.7 %; PLT - PLATELET COUNT 403 10^3/uL (130-450); RED BLOOD COUNT 4.04 10^6/uL (4.20-5.40); RED CELL DISTRIBUTION WIDTH 19.9 % (12.0-15.0); WHITE BLOOD COUNT 7.5 x10^3/uL (4.8-10.8)
[2023-10-05 19:12] LABS: SLIDE REVIEW? Indicated
[2023-10-05 19:26] LABS: ALBUMIN 3.9 g/dL (3.2-5.5); ALBUMIN/GLOBULIN RATIO 1.2 (1.0-2.2); ALKALINE PHOSPHATASE 84 IU/L (42-121); ALT ALANINE AMINOTRANSFERASE 11 IU/L (10-60); AST ASPARTATE AMINOTRANSFERASE 13 IU/L (10-42); BILIRUBIN,TOTAL 0.3 mg/dL (0.2-1.0); BUN - BLOOD UREA NITROGEN 14 mg/dL (6-20); CALCIUM 9.2 mg/dL (8.5-10.3); CARBON DIOXIDE - CO2 26 mmol/L (21-32); CHLORIDE 104 mmol/L (101-111); CREATININE 0.7 mg/dL (0.6-1.3); GFR - MDRD 92 (>89); GLUCOSE 87 mg/dL (74-104); IRON < 10 ug/dL (50-212); POTASSIUM 4.1 mmol/L (3.5-4.5); SODIUM 136 mmol/L (135-145); TOTAL IRON BINDING CAPACITY 494 ug/dL (250-450); TOTAL PROTEIN 7.1 g/dL (6.4-8.9); TRANSFERRIN 353 mg/dL (203-362)
[2023-10-05 19:46] LABS: PLATELET ESTIMATE, MANUAL NORMAL (130-450,000) (NORMAL); PLATELET MORPHOLOGY NORMAL APPEARANCE (NORMAL)
[2023-10-05 20:17] VITALS: BP 155/76; O2SAT 98
== END 2023-10-05 20:10 | disposition home or self-care (01) ==
LOC: ED 18:45
DX: D50.9 Iron deficiency anemia, unspecified (principal); Z98.84 Bariatric surgery status
CPT/HCPCS: 36415; 80053; 82272; 83540; 84466; 85025; 86850; 86900; 86901; 99283